=== PATIENT | female | born 1995 | race African-American/Black ===

== ENCOUNTER → 2016-12-10 | Outpatient (CLI) | payer BC, MEDICAID ==
[2016-12-10 12:11] LABS: CLARITY URINE CLEAR (CLEAR); COLOR URINE YELLOW (YELLOW); GLUCOSE URINE NEGATIVE (NEGATIVE); KETONES URINE NEGATIVE (NEGATIVE); LEUKOCYTE ESTERASE URINE TRACE (NEGATIVE); NITRITE URINE NEGATIVE (NEGATIVE); OCCULT BLOOD URINE NEGATIVE (NEGATIVE); PH URINE 6.5 (4.5-8.0); PROTEIN URINE NEGATIVE (NEGATIVE); SPECIFIC GRAVITY URINE 1.026 (1.005-1.030)
[2016-12-10 12:12] LABS: BASOPHILS % 0.5 % (0.0-2.0); EOSINOPHILS % 3.8 % (0.0-5.0); HEMATOCRIT. 38.8 % (36.0-48.0); HEMOGLOBIN. 13.2 g/dL (12.0-16.0); LYMPHOCYTES % 32.4 % (20.0-50.0); MEAN CORPUSCULAR HEMOGLOBIN 32.3 pg (28.0-32.0); MEAN CORPUSCULAR VOLUME 94.8 fL (81.0-99.0); NEUTROPHILS % 57.3 % (40.0-76.0); PLATELET 170 x1000/uL (130-400); RED BLOOD CELL COUNT 4.09 mill/uL (4.2-5.4); RED CELL DISTRIBUTION WIDTH 11.8 % (11.6-14.6)
[2016-12-10 12:47] LABS: CARBON DIOXIDE 27 mEq/L (21-32); CHLORIDE 106 mEq/L (98-107); HDL CHOLESTEROL 58 mg/dL (40-59); LDL CHOLESTEROL 137 mg/dL (5-100); T4 FREE 0.93 ng/dL (0.76-1.46)
[2016-12-11 09:06] LABS: THYROID PEROXIDASE ANTIBODY 17 IU/mL (0-34)
[2016-12-11 10:12] LABS: VITAMIN D 25-OH 32.2 ng/mL (30.0-100.0)
[2016-12-12 05:21] LABS: CHLAMYDIA TRACHOMATIS NAA Positive (Negative); NEISSERIA GONORRHOEAE NAA Negative (Negative)
== END | disposition home or self-care (01) ==
LOC: LAB 11:03
PROVIDERS: ATTEND Internal Medicine Endocrinology, Diabetes & Metabolism
DX: E04.9 Nontoxic goiter, unspecified (principal); R73.9 Hyperglycemia, unspecified
CPT/HCPCS: 36415; 80053; 80061; 81001; 82306; 83036; 84439; 84443; 85025; 86376; 86592; 87086; 87186; 87491; 87591

== ENCOUNTER → 2017-01-27 | Outpatient (CLI) | payer BC, MEDICAID ==
[2017-01-27 12:41] LABS: FOLIC ACID (FOLATE) SERUM 15.7 ng/mL (>5.38)
[2017-01-29 04:19] LABS: CHLAMYDIA TRACHOMATIS NAA Negative (Negative); NEISSERIA GONORRHOEAE NAA Negative (Negative)
[2017-01-29 10:12] LABS: ANTI-THYROGLOBULIN AB < 1 IU/mL (0.0-0.9)
[2017-02-03 13:12] LABS: METHYLMALONIC ACID 68 nmol/L (0-378)
== END | disposition home or self-care (01) ==
LOC: NM 09:21
PROVIDERS: ATTEND Internal Medicine Endocrinology, Diabetes & Metabolism
DX: E05.00 Thyrotoxicosis with diffuse goiter without thyrotoxic crisis or storm (principal)
CPT/HCPCS: 36415; 78014; 82607; 82746; 83921; 84481; 86592; 86800; 87186; 87491; 87591; A9516

== ENCOUNTER → 2017-02-17 | Outpatient (CLI) | payer BC, MEDICAID ==
[2017-02-17 13:15] LABS: BASOPHILS % 0.9 % (0.0-2.0); HEMATOCRIT. 41.2 % (36.0-48.0); HEMOGLOBIN. 13.8 g/dL (12.0-16.0); LYMPHOCYTES % 31.7 % (20.0-50.0); MEAN CORPUSCULAR HEMOGLOBIN 31.9 pg (28.0-32.0); MEAN PLATELET VOLUME 8.4 fl (7.4-10.4); MONOCYTES % 7.3 % (2.0-8.0); NEUTROPHILS % 56.1 % (40.0-76.0); PLATELET 159 x1000/uL (130-400); RED BLOOD CELL COUNT 4.33 mill/uL (4.2-5.4); RED CELL DISTRIBUTION WIDTH 12.1 % (11.6-14.6)
[2017-02-17 13:48] LABS: CARBON DIOXIDE 27 mEq/L (21-32); CHLORIDE 108 mEq/L (98-107); HDL CHOLESTEROL 60 mg/dL (40-59); LDL CHOLESTEROL 161 mg/dL (5-100); T4 FREE 1.07 ng/dL (0.76-1.46)
== END | disposition home or self-care (01) ==
LOC: LAB 12:47
PROVIDERS: ATTEND Internal Medicine Endocrinology, Diabetes & Metabolism
DX: E03.9 Hypothyroidism, unspecified (principal); E78.00 Pure hypercholesterolemia, unspecified
CPT/HCPCS: 36415; 80053; 80061; 83520; 84439; 84443; 84481; 85025

== ENCOUNTER → 2017-10-21 | Outpatient (CLI) | payer BC, MEDICAID ==
[2017-10-21 13:40] LABS: BASOPHILS % 0.6 % (0.0-2.0); HEMATOCRIT. 41.1 % (36.0-48.0); LYMPHOCYTES % 36.4 % (20.0-50.0); MEAN CORPUSCULAR HEMOGLOBIN 32.1 pg (28.0-32.0); MEAN CORPUSCULAR VOLUME 94.6 fL (81.0-99.0); MEAN PLATELET VOLUME 9.5 fl (7.4-10.4); MONOCYTES % 5.5 % (2.0-8.0); NEUTROPHILS % 54.5 % (40.0-76.0); PLATELET 164 x1000/uL (130-400); RED BLOOD CELL COUNT 4.35 mill/uL (4.2-5.4)
[2017-10-21 13:44] LABS: CLARITY URINE CLEAR (CLEAR); COLOR URINE YELLOW (YELLOW); KETONES URINE NEGATIVE (NEGATIVE); LEUKOCYTE ESTERASE URINE NEGATIVE (NEGATIVE); NITRITE URINE NEGATIVE (NEGATIVE); OCCULT BLOOD URINE NEGATIVE (NEGATIVE); PROTEIN URINE NEGATIVE (NEGATIVE); SPECIFIC GRAVITY URINE 1.022 (1.005-1.030)
[2017-10-21 15:25] LABS: CHLORIDE 107 mEq/L (98-107)
[2017-10-21 15:32] LABS: LDL CHOLESTEROL 131 mg/dL (5-100)
[2017-10-21 15:33] LABS: HDL CHOLESTEROL 59 mg/dL (40-59)
[2017-10-21 15:34] LABS: T4 FREE 0.95 ng/dL (0.76-1.46)
[2017-10-22 19:06] LABS: ANTI-NUCLEAR ANTIBODIES DIRECT Negative (Negative)
[2017-10-23 04:17] LABS: CHLAMYDIA TRACHOMATIS NAA Negative (Negative); NEISSERIA GONORRHOEAE NAA Negative (Negative)
[2017-10-23 13:06] LABS: HIV SCREEN 4G Non Reactive (Non Reactive)
[2017-10-23 19:11] LABS: CCP IgG/IgA PROFILE 6 units (0-19)
[2017-10-24 17:07] LABS: METHYLMALONIC ACID 83 nmol/L (0-378)
== END | disposition home or self-care (01) ==
LOC: LAB 13:07
PROVIDERS: ATTEND Internal Medicine Endocrinology, Diabetes & Metabolism
DX: G62.9 Polyneuropathy, unspecified (principal); R29.2 Abnormal reflex; Z72.51 High risk heterosexual behavior; R79.89 Other specified abnormal findings of blood chemistry
CPT/HCPCS: 36415; 80053; 80061; 81003; 82306; 83036; 83921; 84432; 84439; 84443; 84481; 85025; 85651; 86038; 86200; 86431; 86592; 87086; 87186; 87491; 87591

== ENCOUNTER → 2019-11-04 | Outpatient (CLI) | payer BC ==
[2019-11-04 16:27] LABS: EOSINOPHILS % 3.1 % (0.0-5.0); HEMATOCRIT. 41.4 % (36.0-48.0); LYMPHOCYTES % 45.9 % (20.0-50.0); MEAN CORPUSCULAR HEMOGLOBIN 32.7 pg (28.0-32.0); MEAN CORPUSCULAR VOLUME 96.8 fL (81.0-99.0); MEAN PLATELET VOLUME 9.5 fl (7.4-10.4); MONOCYTES % 4.7 % (2.0-8.0); NEUTROPHILS % 45.3 % (40.0-76.0); PLATELET 172 x1000/uL (130-400); RED BLOOD CELL COUNT 4.27 mill/uL (4.2-5.4); RED CELL DISTRIBUTION WIDTH 12.5 % (11.6-14.6)
[2019-11-04 16:33] LABS: CHLORIDE 108 mEq/L (98-107)
[2019-11-04 16:41] LABS: LDL CHOLESTEROL 192 mg/dL (5-100)
[2019-11-04 16:42] LABS: HDL CHOLESTEROL 60 mg/dL (40-59); T4 FREE 1.18 ng/dL (0.76-1.46)
[2019-11-04 17:14] LABS: FOLIC ACID (FOLATE) SERUM 9.3 ng/mL (>5.38)
[2019-11-08 04:07] LABS: NEISSERIA GONORRHOEAE NAA Negative (Negative)
[2019-11-08 09:08] LABS: HIV SCREEN 4G Non Reactive (Non Reactive); IMMUNOGLOBULIN A 133 mg/dL (87-352); IMMUNOGLOBULIN G 1270 mg/dL (586-1602); IMMUNOGLOBULIN M 116 mg/dL (26-217); RF PROFILE < 10.0 IU/mL (0.0-13.9); VITAMIN D 25-OH 14.5 ng/mL (30.0-100.0)
[2019-11-08 13:08] LABS: ANTI-NUCLEAR ANTIBODIES DIRECT Negative (Negative)
== END | disposition home or self-care (01) ==
LOC: LAB 14:59
PROVIDERS: ATTEND Internal Medicine Endocrinology, Diabetes & Metabolism
DX: R73.9 Hyperglycemia, unspecified (principal); E04.9 Nontoxic goiter, unspecified; M19.90 Unspecified osteoarthritis, unspecified site
CPT/HCPCS: 36415; 80053; 80061; 82306; 82607; 82746; 82784; 82785; 83036; 83921; 84439; 84443; 84481; 84550; 85025; 85651; 86038; 86200; 86431; 86592; 87389; 87491; 87591

== ENCOUNTER → 2019-11-08 | Outpatient (CLI) | payer BC | END | disposition home or self-care (01) | LOC: LAB 07:12 | PROVIDERS: ATTEND Internal Medicine Endocrinology, Diabetes & Metabolism | DX: Z11.59 Encounter for screening for other viral diseases (principal) | CPT/HCPCS: C9803; U0003 ==

== ENCOUNTER → 2019-11-11 | Outpatient (CLI) | payer BC | END | disposition home or self-care (01) | LOC: US 07:51 | PROVIDERS: ATTEND Internal Medicine Endocrinology, Diabetes & Metabolism | DX: E04.1 Nontoxic single thyroid nodule (principal) | CPT/HCPCS: 76536 ==

== ENCOUNTER → 2019-11-30 | Outpatient (CLI) | payer BC | END | disposition home or self-care (01) | LOC: NM 07:49 | PROVIDERS: ATTEND Internal Medicine Endocrinology, Diabetes & Metabolism | DX: R94.6 Abnormal results of thyroid function studies (principal) | CPT/HCPCS: 78014; A9516 ==